=== PATIENT | male | born 1950 | race Caucasian/White ===

== ENCOUNTER 2019-08-27 09:04 | Outpatient (CLI) | payer MEDICARE, OTHER, SELFPAY ==
--- NOTE | ~2019-08-27 | US_ITS ---
EXAMINATION: US aorta [facility] DATE: 08/27/2019 10:02 INDICATION: Abdominal aortic aneurysm screening. TECHNIQUE: Grayscale, color Doppler, and pulsed Doppler images of the aorta and common iliac arteries were obtained. COMPARISON: None. FINDINGS: The aorta is normal in caliber. The right common iliac artery is normal in caliber. The left common i liac artery is normal in caliber. IMPRESSION: 1. No abdominal aortic aneurysm. Reviewed, dictated and finalized at location A. 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
--- NOTE | ~2019-08-27 | XR_ITS ---
EXAMINATION: XR chest 2V EXAM DATE: 08/27/2019 09:18 INDICATION: Asbestos exposure. TECHNIQUE: Frontal and lateral projections of the chest obtained and reviewed. There is no prior tray dy for comparison. FINDINGS: The lungs are clear. There are no pleural effusions. The cardiomediastinal silhouette is within normal limits. There is no pneumothorax suspected. The bones and soft tissues are unremarkab le. Moderate hyperinflation. IMPRESSION: 1. No acute cardiopulmonary findings. 2. Hyperinflation. Reviewed, dictated and finalized at location B. S DEMONSTRATOR
== END 2019-08-27 09:05 | disposition home or self-care (01) ==
LOC: ANHIMG 09:09
PROVIDERS: PCP Family Medicine; Visit Provider Physician Assistant Medical
DX: Z13.6 Encounter for screening for cardiovascular disorders (principal); Z87.891 Personal history of nicotine dependence
CPT/HCPCS: 71046; 76706

== ENCOUNTER 2021-10-04 00:30 | Day surgery (SDC) | payer MEDICARE, OTHER, SELFPAY ==
[2021-09-23 10:10] VITALS: BMI 27.7
--- NOTE | 2021-10-03 11:01 | WPDANESEPP ---
Anes - Eval Pre Procedure Procedure: Operation Date: 10/04/21 09:00 Proposed Procedures p Screening Colonoscopy - Benedicto Howell MD Date/Time: 10/03/21 11:01 Pre Op Diagnosis: hx of colon polyps Patient Data Age: 71 Gender: M Height: 1.88 m Weight: 98 kg Allergies Allergy/AdvReac Type Severity Reaction Status Date / Time No Known Allergies Allergy Unknown Verified 09/23/21 10:11 Home Medications Medication Instructions Recorded Confirmed Type aspirin 81 mg tablet,delayed 81 mg PO DAILY 08/23/19 09/23/21 History release pantoprazole 20 mg tablet,delayed 20 mg PO QAM #90 tablet 07/14/20 09/23/21 Rx release Adults Multivitamin 1 tab-cap PO DAILY 09/23/21 09/23/21 History fiber 5 tablet PO HS 09/23/21 09/23/21 History Patient hx anesthesia problems: none Family hx anesthesia problems: none Results Review: All pre-operative results and documents have been reviewed as part of the pre-operative evaluation. [facility] Past Medical History Medical History COVID-19 Imperfectly descended testis Overweight Surgical History Surgical History History of colectomy Family History Family History Father Lung cancer Mother Breast cancer Sibling Lung cancer Sibling Churg-Boo syndrome Social History Social History Smoking status: Never smoker Alcohol intake: current Drinks per week: 10 Alcohol use details: BEERS Substance use: never Substance use type: does not use Gender identity (if verbalized by the patient): Male Sexual Orientation (if Verbalized by the Patient): Straight or Heterosexual Spiritual care concerns: No Exam Day of Procedure 10/03/21 11:01
[2021-10-04 08:04] VITALS: BP 117/79; PULSE 76; RESP 18; TEMP 36.5; O2SAT 100; BMI 26.6
[2021-10-04] MEDS: LACTATED RINGERS 1,000 ML 150 ML IV CONT (08:11)
--- NOTE | 2021-10-04 08:26 | WPDANESEFPP ---
Anes - Eval Final PreProcedure Day of Procedure 10/04/21 08:26 Patient weight: overweight Heart: regular rate and rhythm Lungs: clear to auscultation and normal air movement Airway: Mallampati scale class II Neurological: alert and oriented Last oral intake: >/= 8 hours ASA classification: II Emergent: no Anesthetic plan: proceed Anesthesia type and monitoring: general GIVS and standard monitoring Results Review: All pre-operative results and documents have been reviewed as part of the pre-operative evaluation. Informed Consent: The patient's anesthetic plan and its attendant risks and benefits were discussed with the patient/family/POA. Questions were solicited and answers provided to the satisfaction of the patient/family/POA.
--- NOTE | 2021-10-04 08:49 | WPDGICN ---
Assessment and Plan Assessment and plan (1) History of colon polyps: Code(s): Z86.010 - Personal history of colonic polyps Status: Acute Assessment and Plan: Patient has a history of adenomatous colon polyps in the past. Had partial colectomy 2012 because of a large cecal polyp. Plan is for surveillance colonoscopies now and every 3-4 years in the future. GI Consult Note Consult date/time: 10/04/21 08:49 HPI: Andi Kim is a 71 year old male Presents for screening colonoscopy. Patient has a history of a large cecal colon polyp requiring resection. Patient has had colon polyps on other occasions as well. His current weight appetite bowel movements are normal. He denies abdominal pain. He has had no bleeding. Family history is noncontributory. Patient presents today for neoplasia screening. Review of Systems Review of Systems: All systems reviewed & are unremarkable except as noted in HPI and below PMFSH Past Medical History Medical History (Updated 10/04/21 @ 08:50 by Benedicto Howell MD) COVID-19 Imperfectly descended testis Overweight Surgical History Surgical History (Updated 10/03/21 @ 14:06 by Morena Germain CRNA) History of colectomy Right Hemicolectomy [address] Thomas Family History Family History Father Lung cancer Mother Breast cancer Sibling Lung cancer Sibling Churg-Boo syndrome Social History Social History Smoking status: Never smoker Alcohol intake: current Drinks per week: 10 Alcohol use details: BEERS Substance use: never Substance use type: does not use Living arrangements: with family Gender identity (if verbalized by the patient): Male Sexual Orientation (if Verbalized by the Patient): Straight or Heterosexual Spiritual care concerns: No Meds Home Medications and Allergies Home Medications Medication Instructions Recorded Confirmed Type aspirin 81 mg tablet,delayed 81 mg PO DAILY 08/23/19 09/23/21 History release pantoprazole 20 mg tablet,delayed 20 mg PO QAM #90 tablet 07/14/20 09/23/21 Rx release Adults Multivitamin 1 tab-cap PO DAILY 09/23/21 09/23/21 History fiber 5 tablet PO HS 09/23/21 09/23/21 History Allergies Allergy/AdvReac Type Severity Reaction Status Date / Time No Known Allergies Allergy Unknown Verified 10/04/21 08:03 Vital Signs Vital Signs - 24 hr 10/04/21 08:04 Temperature 97.7 F Pulse Rate 76 Respiratory Rate 18 Blood Pressure 117/79 Pulse Oximetry 100 Exam Narrative: Physical exam reveals patient to be alert. Vital signs stable. HEENT exam unremarkable. Patient is anicteric. Lungs are clear to auscultation and percussion. Heart is without murmur or extra sounds. Abdominal exam bowel sounds are present soft nontender with no organomegaly. Digital external rectal exam is normal.
[2021-10-04 09:15] VITALS: BP 93/62; PULSE 59; RESP 15; O2SAT 100
[2021-10-04 09:25] VITALS: BP 105/73; PULSE 58; RESP 15; O2SAT 98
[2021-10-04 09:35] VITALS: BP 110/72; PULSE 59; RESP 15; O2SAT 100
== END 2021-10-04 09:38 | disposition home or self-care (01) ==
PROVIDERS: PCP Family Medicine; Visit Provider Internal Medicine Gastroenterology
PROC: 0DJD8ZZ Inspection of Lower Intestinal Tract, Via Natural or Artificial Opening Endoscopic (ICD-10-PCS; CPT 45378; principal; 2021-10-04 09:00)
DX: Z12.11 Encounter for screening for malignant neoplasm of colon (principal); K64.8 Other hemorrhoids; Z98.0 Intestinal bypass and anastomosis status; Z86.010 Personal history of colon polyps; Z86.16 Personal history of COVID-19; Z90.49 Acquired absence of other specified parts of digestive tract; Z79.82 Long term (current) use of aspirin
CPT/HCPCS: G0105; J2704; J7120

== ENCOUNTER 2022-08-25 00:31 | Day surgery (SDC) | payer MEDICARE, OTHER, SELFPAY ==
[2022-08-19 11:03] VITALS: BMI 28.2
--- NOTE | 2022-08-19 11:08 | PC.NURSE ---
Report to the Outpatient Waiting Room, entrance under the green pavilion located off [facility], at time 6:00 on date 08/25/22. Planned Procedure Time: 8:00. Time changes happen often and if your time is changed the preop area will call you the afternoon before. - You and your visitor will be asked to self-screen and do not enter if you have any COVID symptoms. - Only one visitor is requested with a max of two and NO children visitors are allowed at this time. - The patient visitor may be requested to leave or wait in car when not with patient due to distancing restrictions. - A mask is optional within the hospital. Patients may have clear liquids (water, carbonated beverages, clear teas, apple juice) until 3 hours prior to surgery with a maximum of 20 ounces. - No food from midnight until time of surgery Take the following medications with a SIP of water the morning of surgery: NONE Medications to discontinue per physician: VITAMINS/SUPPLEMENTS Date to take last dose: 08/21/22 STOP ASPIRIN 7 DAYS PRIOR TO SURGERY Please no make-up, nail bhutanese, hairspray, perfume, deodorant, or body powder the day of surgery. No jewelry (including any body piercings) or valuables the day of surgery, leave them at home. Please take a shower or bath the night before, or the morning of, surgery with an antibacterial soap. Wear comfortable, loose fitting clothing. - Jewelry must be removed prior to entering the operating room. Rings and piercings that are not removed may be cut off. - The hospital will not accept responsibility for valuables. - Please leave all valuables, including medications, at home the day of surgery. If you are going home after surgery, a licensed school bus driver must drive you home. - NO public transportation without another adult if you receive anesthesia. - We recommend that an adult stay with you for 24 hours following discharge. - We also recommend that you do not drive, make important decision, drink alcoholic beverages, or take any drugs that were not prescribed by your health care provider for at least 24 hours after your discharge time. Follow any additional instructions given to you from your surgeon. If you or anyone in your household have experienced Covid symptoms in the past week, please notify your surgeon or the nurse liaison at the phone number below for possible testing. Telephone instructions given to PT - DON BOEGER and asked if any additional questions and then verbalized understanding. Patient advised to call surgeon office or pre surgery nurse liaison [phone] if any additional questions.
--- NOTE | 2022-08-23 22:40 | PM.IMHP ---
H&P: HPI History of Present Illness Date/Time: 08/23/22 22:40 Chief Complaint: Left hallux pain and stiffness Narrative: 71yo man with left hallux rigidus. Pain daily. Presents for operative tx Review of Systems Constitutional: Constitutional: Denies fever(s) Eyes: Eyes: Denies blurry vision ENT: Reports Normal hearing present Cardiovascular: Cardiovascular: Denies chest pain and Denies dyspnea Respiratory: Respiratory: Denies dyspnea and Denies wheezing Gastrointestinal: Gastrointestinal: Denies abdominal pain Genitourinary: Genitourinary: Denies urinary urgency Musculoskeletal: Musculoskeletal: Reports as per HPI and Denies numbness Integumentary/Breasts: Skin/Breast: Denies changing lesions and Denies sores Neurologic: Reports Normal hearing present, Denies behavioral changes, Denies confusion, Denies numbness and Denies convulsions Psychiatric: Psychiatric: Denies behavioral changes, Denies confusion and Denies hallucinations Endocrine: Endocrine: Denies heat intolerance Hematologic/Lymphatic: Hematologic/Lymphatic: Denies easy bleeding Allergic/Immunologic: Allergic/Immunologic: Denies wheezing PMFSH Past Medical History Medical History COVID-19 Hallux rigidus of left foot Hepatitis C antibody test negative (04/20/22) Imperfectly descended testis Overweight Surgical History Surgical History History of colectomy Right Hemicolectomy [address] 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[employer] Gender identity (if verbalized by the patient): Male Sexual Orientation (if Verbalized by the Patient): Straight or Heterosexual Spiritual care concerns: No Meds Home Medications and Allergies Home Medications Medication Instructions Recorded Confirmed Type aspirin 81 mg tablet,delayed 81 mg PO DAILY 08/23/19 08/19/22 History release (Adult Aspirin Regimen) Adults Multivitamin 1 tab-cap PO DAILY 09/23/21 08/19/22 History fiber 5 tablet PO HS 09/23/21 08/19/22 History pantoprazole 20 mg tablet,delayed See Rx Instructions .Route 01/03/22 08/19/22 Rx release .COMPLEX #90 tabs Allergies Allergy/AdvReac Type Severity Reaction Status Date / Time No Known Allergies Allergy Unknown Verified 08/19/22 11:02 Exam Const: General: No confusion Orientation/consciousness: No confusion HENMT: Head: normal to inspection, normocephalic and atraumatic Eyes: Conjunctivae: conjunctivae normal Sclera: sclerae normal Neck: Neck: supple and nontender Chest: Chest palpation & inspection: normal inspection of the chest Resp: Effort & Inspection: normal respiratory effort and no audible wheezes Cardio: Rate: regular rate Rhythm: regular rhythm : General: Yes deferred Skin: General skin exam: no rashes or lesions noted Neuro: General: No confusion Extrem: General: capillary refill normal Right upper extremity: normal to inspection Left upper extremity: normal to inspection Right lower extremity: normal to inspection and hip/thigh Details: normal to inspection Left lower extremity: hip/thigh Details: normal to inspection, kne
--- NOTE | 2022-08-24 09:27 | WPDANESEPPF ---
Anes - Initial Pre Proc Eval Procedure: Operation Date: 08/25/22 08:00 Proposed Procedures p Left Hallux Metatarsophalangeal Joint Arthrodesis - Nick Mccrary MD Date/Time: 08/24/22 09:27 Surgeon: Nick Mccrary MD Pre Op Diagnosis: left hallux rigidus,arthritis, sesamoiditis Patient Data Age: 71 Gender: M Height: 1.88 m Weight: 99.79 kg Allergies Allergy/AdvReac Type Severity Reaction Status Date / Time No Known Allergies Allergy Unknown Verified 08/25/22 06:27 Home Medications Medication Instructions Recorded Confirmed Type aspirin 81 mg tablet,delayed 81 mg PO DAILY 08/23/19 08/19/22 History release (Adult Aspirin Regimen) Adults Multivitamin 1 tab-cap PO DAILY 09/23/21 08/19/22 History fiber 5 tablet PO HS 09/23/21 08/19/22 History pantoprazole 20 mg tablet,delayed See Rx Instructions .Route 01/03/22 08/19/22 Rx release .COMPLEX #90 tabs Patient hx anesthesia problems: none Family hx anesthesia problems: none Results Review: All pre-operative results and documents have been reviewed as part of the pre-operative evaluation. [facility] Past Medical History Medical History COVID-19 Hallux rigidus of left foot Hepatitis C antibody test negative (04/20/22) Imperfectly descended testis Overweight Surgical History Surgical History History of colectomy Right Hemicolectomy [address] 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[employer] Gender identity (if verbalized by the patient): Male Sexual Orientation (if Verbalized by the Patient): Straight or Heterosexual Spiritual care concerns: No Anes - Eval Final PreProcedure Day of Procedure 08/24/22 09:27 Patient weight: overweight Heart: regular rate and rhythm Lungs: clear to auscultation and normal air movement Airway: Mallampati scale class II Neurological: alert and oriented Last oral intake: >/= 8 hours ASA classification: II Emergent: no Anesthetic plan: proceed Anesthesia type and monitoring: general GIVS and LMA and standard monitoring Results Review: All pre-operative results and documents have been reviewed as part of the pre-operative evaluation. Informed Consent: The patient's anesthetic plan and its attendant risks and benefits were discussed with the patient/family/POA. Questions were solicited and answers provided to the satisfaction of the patient/family/POA.
[2022-08-25] VITALS (7 sets, daily range): BP systolic 107–146; BP diastolic 68–87; PULSE 51–71; RESP 12–16; TEMP 36.1; O2SAT 96–99
--- NOTE | ~2022-08-25 | XR_ITS ---
EXAMINATION: XR surgery orthopedic DATE: 08/25/2022 09:45 INDICATION: Left foot arthrodesis TECHNIQUE: 3 fluoroscopic images of the left forefoot were obtained during procedure performed by Dr. Mccrary. Radiologist was not present for the imaging or procedure. The amount of fluoroscopy time us ed during this procedure was 0.1 minutes. COMPARISON: None. FINDINGS: First metatarsophalangeal arthrodesis which is fixed with a cannulated variable pitch compression scr ew and dorsal plate and screw fixation. Alignment appears near-anatomic. Expected small amount of sof t tissue gas at the operative bed. No fracture. Mild osteoarthritis at a few of the interphalangeal j oints. IMPRESSION: 1. Expected appearance post instrumented left first metatarsophalangeal arthrodesis. Reviewed, dictated and finalized at location L. NT RELATIONS REPRESENTATIVE IMPRESSION: 1. Expected appearance post instrumented left first metatarsophalangeal arthrod esis.
[2022-08-25] MEDS: ACETAMINOPHEN 500 MG TABLET 1000 MG PO (06:28)
[2022-08-25] MEDS: LACTATED RINGERS 1,000 ML 30 ML IV CONT (07:01)
[2022-08-25] MEDS: KETOROLAC 15 MG/ML VIAL (*BKC) IV PUSH (07:01)
--- NOTE | 2022-08-25 08:17 | WPDHPUPDATE1 ---
History and Physical Update Update Date/Time: 08/25/22 08:17 History and Physical has been reviewed, including an updated exam of the patient. There are NO changes in the patient's condition. Risks, benefits, and alternatives have been discussed and questions answered. Patient agrees to proceed with procedure.
[2022-08-25] MEDS: ceFAZolin 2 GM/D5W 50 ML 2 GM/50 ML BAG IVPB (08:29)
[2022-08-25] MEDS: BUPIVACAINE HCL 0.5% PF 30 ML VIAL INFILTRATE (08:53)
--- NOTE | 2022-08-25 09:53 | W.PM.PROC2 ---
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 Failed conservative treatment with shoe wear, inserts and activity modification. Several years of symptoms. Presents now for operative treatment. Findings Complete loss of metatarsal and phalangeal articular surface from the joint. Large dorsal medial and lateral metatarsal osteophytes. Description of Procedure Patient identified in the preoperative holding. Informed consent given. Operative extremity marked. Patient received intravenous antibiotics. Patient brought to the operating room where underwent general anesthetic by anesthesia team. Positioned supine on operating room table. Time-out performed confirming the patient, site of the surgery and the plan. foot prepped and draped usual sterile surgical fashion using a ChloraPrep skin solution. Foot and ankle exsanguinated and a calf tourniquet inflated to 225 mmHg. Longitudinal incision made dorsum of hallux centered over metatarsophalangeal joint with a 15 blade knife. Hemostasis controlled electrocautery. Extensor hallucis tendon retracted laterally and a dorsal capsulotomy performed in line with the longitudinal skin incision. Soft tissue released off of the metatarsal to expose the joint. Extensive scar and fibrosis of the joint noted. Rongeur used to remove excess osteophytes. Reaming of the joint then performed with the Arthrex joint preparation reamers. Guide pin placed metatarsal and reaming performed size 18 mm. Guide pin then placed in the proximal phalanx and reaming performed to a size 18 mm. Wound thoroughly irrigated and debris removed. Plantar osteophytes carefully removed as well as the medial sesamoid. Joint then aligned and provisionally pinned. Alignment checked with image intensification 3rd fixation achieved with a dorsal locking plate with compression and a 3.5 mm lag screw. Image intensification confirmed final position. Wound irrigated and capsule closed with 0 Vicryl interrupted suture. Subcutaneous tissue repaired with 3-0 Monocryl interrupted suture and skin repaired with 4-0 nylon running suture. Sterile dressing applied. The patient was then woken from anesthesia, extubated and taken to the recovery room in stable condition. All sponge, needle, instrument counts were correct at the end of the case. Implants Arthrex arthrodesis plate with screws, 3.5 mm cannulated screw x1 Estimated Blood Loss 5 Tourniquet Time 60 Drains No Packing No Pathology None sent Complications None Condition Stable Disposition PACU [facility] Billing Surgery - Charge Forward: Surgery Billing ([id number])
--- NOTE | 2022-08-25 12:34 | SUR.PHASEII ---
Daughter, Kelly, called back and she will come from [facility] and pick-up her dad. She is going to go to their home first and check on their mom since we are unable to reach her.
--- NOTE | 2022-08-25 12:59 | SUR.PHASEII ---
1230: Vitals are stable. Patient is unhooked from monitors and waiting for ride to get here.
--- NOTE | 2022-08-25 13:16 | SUR.PHASEII ---
Daughter, Kelly, aware that patient's spouse is here to pick-up.
== END 2022-08-25 13:11 | disposition home or self-care (01) ==
PROVIDERS: PCP Family Medicine; Visit Provider Orthopaedic Surgery
PROC: (CPT 28750; principal; 2022-08-25 08:00)
DX: M20.22 Hallux rigidus, left foot (principal); M25.872 Other specified joint disorders, left ankle and foot; M19.072 Primary osteoarthritis, left ankle and foot; Z79.82 Long term (current) use of aspirin; Z87.891 Personal history of nicotine dependence
CPT/HCPCS: 28750; 99199; A9270; C1713; C1769; J0690; J1100; J1885; J2405; J2704; J3010; J7120

== ENCOUNTER 2023-06-23 10:50 | Outpatient (CLI) | payer MEDICARE, OTHER, SELFPAY ==
[2023-06-23 11:05] LABS: Basophils Percent Auto 0.4 % (0.2-1.2); Eosinophils Absolute Auto 0.2 K/mm3 (0-0.3); Hematocrit 43.7 % (42.0-52.0); Hemoglobin 14.3 g/dL (14.0-18.0); Immature Granulocyte Absolute 0.04 K/mm3 (0.00-0.031); Immature Granulocyte Percent A 0.5 % (0-0.5); Lymphocytes Absolute Auto 1.43 K/mm3 (0.9-3.2); Lymphocytes Percent Auto 18.8 % (18.3-44.2); Mean Corpuscular HGB Conc 32.7 g/dl (32-36); Mean Corpuscular Hemoglobin 29.6 pg (26-34); Mean Corpuscular Volume 90.5 fl (80-100); Mean Platelet Volume 9.1 fl (7.4-10.4); Monocytes Absolute Auto 0.7 K/mm3 (0.1-0.6); Monocytes Percent Auto 9.2 % (2.6-8.5); Neutrophils Absolute Auto 5.3 K/mm3 (1.3-6.7); Neutrophils Percent Auto 69.1 % (45.5-73.1); Platelet Count Result 299 k/mm3 (150-375); Red Blood Count 4.83 M/mm3 (4.6-6.20); Red Cell Distribution Width 13.5 % (11.5-14.5); White Blood Count 7.6 K/mm3 (4.5-10.0)
[2023-06-23 11:15] LABS: Anion Gap 9 mmol/L (8-16); Blood Urea Nitrogen 13 mg/dL (9-20); Carbon Dioxide 26 mmol/L (22-30); Chloride 103 mmol/L (98-107); Cholesterol 162 mg/dL (0-200); Estimated Glomerular Filt Rate > 60; Glucose 104 mg/dL (65-110); HDL Direct 28 mg/dL; Sodium 138 mmol/L (137-145); Triglycerides 140 mg/dL (<150)
[2023-06-23 11:26] LABS: LDL Cholesterol Direct 97 mg/dL
== END 2023-06-23 10:51 | disposition home or self-care (01) ==
PROVIDERS: PCP Family Medicine; Visit Provider Nurse Practitioner Family
DX: M31.30 Wegener's granulomatosis without renal involvement (principal); E78.2 Mixed hyperlipidemia; E66.3 Overweight
CPT/HCPCS: 36415; 80048; 80061; 85025

== ENCOUNTER 2024-04-05 08:49 | Outpatient (CLI) | payer MEDICARE, OTHER, SELFPAY ==
[2024-04-05 09:21] LABS: Basophils Percent Auto 0.4 % (0.2-1.2); Eosinophils Absolute Auto 0.2 K/mm3 (0-0.3); Eosinophils Percent Auto 2.8 % (0-4.4); Hematocrit 45.8 % (42.0-52.0); Hemoglobin 15.5 g/dL (14.0-18.0); Immature Granulocyte Absolute 0.03 K/mm3 (0.00-0.031); Immature Granulocyte Percent A 0.4 % (0-0.5); Lymphocytes Absolute Auto 2.33 K/mm3 (0.9-3.2); Lymphocytes Percent Auto 33.9 % (18.3-44.2); Mean Corpuscular HGB Conc 33.8 g/dl (32-36); Mean Corpuscular Hemoglobin 30.3 pg (26-34); Mean Corpuscular Volume 89.6 fl (80-100); Mean Platelet Volume 9.8 fl (7.4-10.4); Monocytes Absolute Auto 0.5 K/mm3 (0.1-0.6); Monocytes Percent Auto 7.9 % (2.6-8.5); Neutrophils Absolute Auto 3.8 K/mm3 (1.3-6.7); Neutrophils Percent Auto 54.6 % (45.5-73.1); Platelet Count Result 251 k/mm3 (150-375); Red Blood Count 5.11 M/mm3 (4.6-6.20); White Blood Count 6.9 K/mm3 (4.5-10.0)
[2024-04-05 09:33] LABS: Anion Gap 9 mmol/L (4-12); Blood Urea Nitrogen 13 mg/dL (9-20); Carbon Dioxide 28 mmol/L (22-30); Chloride 102 mmol/L (98-107); Cholesterol 191 mg/dL (0-200); Estimated Glomerular Filt Rate > 60; Glucose 95 mg/dL (65-110); HDL Direct 37 mg/dL; Sodium 139 mmol/L (137-145); Triglycerides 212 mg/dL (<150)
[2024-04-05 09:45] LABS: LDL Cholesterol Direct 107 mg/dL
[2024-04-05 10:05] LABS: Prostate Specific Antigen 1.7 ng/mL (< OR = 4.0)
== END 2024-04-05 08:50 | disposition home or self-care (01) ==
LOC: ANHLAB 08:53
PROVIDERS: PCP Family Medicine; Visit Provider Nurse Practitioner Family
DX: M47.897 Other spondylosis, lumbosacral region (principal); Z12.5 Encounter for screening for malignant neoplasm of prostate; E78.2 Mixed hyperlipidemia; M31.30 Wegener's granulomatosis without renal involvement
CPT/HCPCS: 36415; 80048; 80061; 84153; 84443; 85025; G0103

== ENCOUNTER 2024-05-09 07:43 | Outpatient (CLI) | payer MEDICARE, OTHER, SELFPAY ==
[2024-05-09 10:32] LABS: Free T4 Free Thyroxine Reflex 0.93 ng/dL (0.78-2.19)
[2024-05-09 11:19] LABS: Total Triiodothyronine (T3) 1.62 NG/ML (0.97-1.69)
== END 2024-05-09 07:44 | disposition home or self-care (01) ==
PROVIDERS: PCP Family Medicine; Visit Provider Nurse Practitioner Family
DX: E78.2 Mixed hyperlipidemia (principal); R79.89 Other specified abnormal findings of blood chemistry
CPT/HCPCS: 36415; 84439; 84443; 84480

== ENCOUNTER 2024-12-12 10:34 | Outpatient (CLI) | payer MEDICARE, OTHER, SELFPAY ==
[2024-12-12 12:03] LABS: Thyroid Stimulating Hormone 0.293 uIU/mL (0.465-4.680)
== END 2024-12-12 10:35 | disposition home or self-care (01) ==
PROVIDERS: PCP Family Medicine; Visit Provider Family Medicine
DX: E03.9 Hypothyroidism, unspecified (principal)
CPT/HCPCS: 36415; 84443

== ENCOUNTER 2025-01-14 01:57 | Day surgery (SDC) | payer MEDICARE, OTHER, SELFPAY ==
[2024-12-30 15:01] VITALS: BMI 28.1
[2025-01-14 06:25] VITALS: BP 115/65; PULSE 76; RESP 18; TEMP 36.1; O2SAT 97
[2025-01-14] MEDS: LACTATED RINGERS 1,000 ML 150 ML IV CONT (06:33)
--- NOTE | 2025-01-14 07:20 | P.PNAN_ITS ---
Anes - Initial Pre Proc Eval Procedure: Operation Date: 01/14/25 07:30 Proposed Procedures p Colonoscopy - Abundio Jasso MD Date/Time: 01/14/25 07:20 Surgeon: Abundio Jasso MD Pre Op Diagnosis: Hx of polyps Patient Data Age: 74 Gender: M Height: 1.91 m Weight: 102.3 kg Last Vital Signs Temp 36.1 C L 01/14/25 06:25 Pulse 76 01/14/25 06:25 Resp 18 01/14/25 06:25 BP 115/65 01/14/25 06:25 Pulse Ox 97 01/14/25 06:25 O2 Del Method Room Air 01/14/25 06:25 Allergies Allergy/AdvReac Type Severity Reaction Status Date / Time No Known Allergies Allergy Unknown Verified 01/14/25 06:22 Home Medications ?Medication ?Instructions ?Recorded ?Confirmed ?Type aspirin 81 mg tablet,delayed 81 mg PO DAILY 08/23/19 01/14/25 History release (Adult Aspirin Regimen) fiber 5 tablet PO HS 09/23/21 01/14/25 History ibuprofen 800 mg tablet 800 mg PO TID PRN pain #30 tabs 08/25/22 12/30/24 Rx pantoprazole 20 mg tablet,delayed See Rx Instructions .Route 09/06/24 01/14/25 Rx release .COMPLEX #90 tabs levothyroxine 100 mcg tablet 100 mcg PO DAILY #90 tabs 12/31/24 01/14/25 Rx (Synthroid) Patient hx anesthesia problems: none Family hx anesthesia problems: none Results Review: All pre-operative results and documents have been reviewed as part of the pre- operative evaluation. [facility] Past Medical History Medical History Encounter for postoperative care Hallux rigidus of left foot Hepatitis C antibody test negative (04/20/22) Overweight Imperfectly descended testis COVID-19 Surgical History Surgical History History of foot surgery left foot 08/22 H/O arthrodesis History of colectomy Right Hemicolectomy [address] Thomas Family History Family History Father Lung cancer Mother Breast cancer Sibling Lung cancer Sibling Churg-Boo syndrome Social History Social History Smoking packs per day: 1 Smoking cigarettes per day: 20.0 Years smoked: 5 Smoking pack-years: 5.00 Smoking status: Former smoker Tobacco type: cigarettes Smoking end date: 07/31/82 Alcohol intake: current Drinks per week: 2 Alcohol use details: NOT FOR A FEW MONTHS Substance use: never Substance use type: does not use Lack of Transportation: No Lack of Food: Never True Current Housing: I Have Housing Concerned About Future Housing: No Difficulty Paying Gas/Electric Bills: No Difficulty Paying for Meds: No Currently Unemployed: No Education: Bachelor's Degree Difficulty w/ Childcare or Family Care: No Living arrangements: with family Occupation/Education: retired 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 [employer] Gender identity (if verbalized by the patient): Male Sexual Orientation (if Verbalized by the Patient): Straight or Heterosexual Spiritual care concerns: No Anes - Eval Final PreProcedure Day of Procedure 01/14/25 07:20 Patient weight: overweight Heart: regular rate and rhythm Lungs: clear to auscultation Airway: Mallampati scale class II Neurological: alert and oriented Last oral intake: >/= 8 hours ASA classification: III Emergent: no Anesthetic plan: proceed Anesthesia type and monitoring: general GIVS and standard monitoring Results Review: All pre-operative results and documents have been reviewed as part of the pre- operative evaluation. Informed Consent: The patient's anesthetic plan and its attendant risks and benefits were discussed with the patient/family/POA. Questions were solicited and answers provided to the satisfaction of the patient/family/POA.
--- NOTE | 2025-01-14 07:26 | PM.HPGS ---
History of Present Illness History of Present Illness Consent: Risks, benefits, and alternatives have been discussed and questions answered. Patient agrees to proceed with procedure. Chief complaint: Hx of polyps Narrative: Andi Kim is a 74 year old male here for colonoscopy, last one 2021. Had partial colectomy 2012 because of a large cecal polyp. Review of Systems Review of Systems: All systems reviewed & are unremarkable except as noted in HPI and below PMFSH Past Medical History Medical History Encounter for postoperative care Hallux rigidus of left foot Hepatitis C antibody test negative (04/20/22) Overweight Imperfectly descended testis COVID-19 Surgical History Surgical History History of foot surgery left foot 08/22 H/O arthrodesis History of colectomy Right Hemicolectomy [address] Thomas Family History Family History Father Lung cancer Mother Breast cancer Sibling Lung cancer Sibling Churg-Boo syndrome Social History Social History Smoking packs per day: 1 Smoking cigarettes per day: 20.0 Years smoked: 5 Smoking pack-years: 5.00 Smoking status: Former smoker Tobacco type: cigarettes Smoking end date: 07/31/82 Alcohol intake: current Drinks per week: 2 Alcohol use details: NOT FOR A FEW MONTHS Substance use: never Substance use type: does not use Lack of Transportation: No Lack of Food: Never True Current Housing: I Have Housing Concerned About Future Housing: No Difficulty Paying Gas/Electric Bills: No Difficulty Paying for Meds: No Currently Unemployed: No Education: Bachelor's Degree Difficulty w/ Childcare or Family Care: No Living arrangements: with family Occupation/Education: retired 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 [employer] Gender identity (if verbalized by the patient): Male Sexual Orientation (if Verbalized by the Patient): Straight or Heterosexual Spiritual care concerns: No Meds Home Medications and Allergies Home Medications ?Medication ?Instructions ?Recorded ?Confirmed ?Type aspirin 81 mg tablet,delayed 81 mg PO DAILY 08/23/19 01/14/25 History release (Adult Aspirin Regimen) fiber 5 tablet PO HS 09/23/21 01/14/25 History ibuprofen 800 mg tablet 800 mg PO TID PRN pain #30 tabs 08/25/22 12/30/24 Rx pantoprazole 20 mg tablet,delayed See Rx Instructions .Route 09/06/24 01/14/25 Rx release .COMPLEX #90 tabs levothyroxine 100 mcg tablet 100 mcg PO DAILY #90 tabs 12/31/24 01/14/25 Rx (Synthroid) Allergies Allergy/AdvReac Type Severity Reaction Status Date / Time No Known Allergies Allergy Unknown Verified 01/14/25 06:22 Vital Signs Vital Signs - 24 hr 01/14/25 06:25 Temperature 97 F L Pulse Rate 76 Respiratory Rate 18 Blood Pressure 115/65 Pulse Oximetry 97 Oxygen Delivery Room Air Exam Const: General: comfortable and no acute distress HENMT: Face/Nose/Sinus: Normal nares present Eyes: General: appearance normal, both eyes and all related structures Neck: Neck: no JVD Resp: Auscultation: clear to auscultation bilaterally Cardio: Rate: regular rate Rhythm: regular rhythm GI: Inspection: non-distended GI Palp: Yes Soft to palpation Skin: General skin exam: normal color Neuro: Speech: normal speech Extrem: General: normal to inspection Psych: Mental Status: mental status grossly normal Assessment and Plan Assessment and plan (1) History of colon polyps: Code(s): Z86.010 - Personal history of colon polyps Status: Acute Assessment and Plan: colonoscopy
[2025-01-14 07:38] VITALS: BP 88/56; PULSE 59; RESP 17; O2SAT 94
[2025-01-14 07:48] VITALS: BP 108/66; PULSE 56; RESP 17; O2SAT 94
[2025-01-14 07:58] VITALS: BP 112/74; PULSE 60; RESP 15; O2SAT 96
== END 2025-01-14 08:10 | disposition home or self-care (01) ==
PROVIDERS: PCP Family Medicine; Referring Provider Internal Medicine Gastroenterology; Visit Provider Internal Medicine Gastroenterology
PROC: 0DJD8ZZ Inspection of Lower Intestinal Tract, Via Natural or Artificial Opening Endoscopic (ICD-10-PCS; CPT 45378; principal; 2025-01-14 07:30)
DX: Z12.11 Encounter for screening for malignant neoplasm of colon (principal); K64.8 Other hemorrhoids; Z98.0 Intestinal bypass and anastomosis status; Z90.49 Acquired absence of other specified parts of digestive tract; Z86.0100 Personal history of colon polyps, unspecified; Z87.891 Personal history of nicotine dependence
CPT/HCPCS: G0105; J2003; J2704; J7120

== ENCOUNTER 2025-04-01 11:35 | Outpatient (CLI) | payer MEDICARE, OTHER, SELFPAY ==
[2025-04-01 13:05] LABS: Alanine Aminotransferase 47 U/L (6-50); Albumin Level 4.1 g/dL (3.5-5.1); Alkaline Phosphatase 79 U/L (38-126); Anion Gap 10 mmol/L (4-12); Aspartate Amino Transferase 32 U/L (17-59); Bilirubin,Total 0.6 mg/dL (0.2-1.3); Blood Urea Nitrogen 14 mg/dL (9-20); Calcium 9.3 mg/dL (8.4-10.2); Carbon Dioxide 26 mmol/L (22-30); Chloride 103 mmol/L (98-107); Estimated Glomerular Filt Rate > 60; Glucose 123 mg/dL (65-110); Potassium 3.9 mmol/L (3.4-5.0); Sodium 139 mmol/L (137-145); Total Protein 7.3 g/dL (6.3-8.2)
[2025-04-01 13:37] LABS: Thyroid Stimulating Hormone < 0.015 uIU/mL (0.465-4.680)
== END 2025-04-01 11:36 | disposition home or self-care (01) ==
LOC: ANHLAB 11:37
PROVIDERS: PCP Family Medicine; Visit Provider Family Medicine
DX: E03.9 Hypothyroidism, unspecified (principal); E78.2 Mixed hyperlipidemia
CPT/HCPCS: 36415; 80053; 84443

== ENCOUNTER 2025-06-09 09:44 | Outpatient (CLI) | payer MEDICARE, OTHER, SELFPAY ==
[2025-06-09 11:02] LABS: Thyroid Stimulating Hormone Reflex 8.260 uIU/mL (0.465-4.68)
[2025-06-09 11:35] LABS: Free T4 Free Thyroxine Reflex 0.92 ng/dL (0.78-2.19)
[2025-06-09 12:15] LABS: Total Triiodothyronine (T3) 1.23 NG/ML (0.82-1.58)
== END 2025-06-09 09:45 | disposition home or self-care (01) ==
PROVIDERS: PCP Family Medicine; Visit Provider Family Medicine
DX: E03.9 Hypothyroidism, unspecified (principal)
CPT/HCPCS: 36415; 84439; 84443; 84445; 84480; 86376